=== PATIENT | female | born 1990 | race Caucasian/White ===

== ENCOUNTER → 2016-11-06 | Outpatient (CLI) | payer OTHER ==
[~2016-11-06] MED LIST: PSEU30TA20 PO
== END | disposition home or self-care (01) ==
LOC: C.PAPS 11:30
PROVIDERS: ATTEND Obstetrics & Gynecology
DX: Z34.90 Encounter for supervision of normal pregnancy, unspecified, unspecified trimester (principal); R87.610 Atypical squamous cells of undetermined significance on cytologic smear of cervix (ASC-US)

== ENCOUNTER → 2016-11-06 | Outpatient (CLI) | payer OTHER ==
[2016-11-06 11:09] LABS: BASO % 0.1 %; BASO ABS # 0.01 K/uL (0-0.2); COMPLETE YES; EOS % 0.6 %; HEMATOCRIT 40.8 % (37-47); IG% 0.3 %; LYMPH % 25.9 %; LYMPH ABS # 1.74 K/uL (1.2-3.4); MEAN CORPUSCULAR HEMOGLOBIN 29.8 pg (25-34); MEAN PLATELET VOLUME 10.5 fL (7.4-10.4); MONO % 7.2 %; NEUT % 65.9 %; PLATELET COUNT 198 K/uL (130-400); WHITE BLOOD COUNT 6.71 K/uL (4.8-10.8)
[2016-11-06 11:39] LABS: URINE APPEARANCE CLEAR (CLEAR); URINE BILIRUBIN NEG (NEG); URINE COLOR YELLOW; URINE EPITHELIAL CELL AUTO >30 /lpf (0-5); URINE NITRITE NEG (NEG); URINE SPECIFIC GRAVITY 1.027 (1.000-1.030); UROBILINOGEN NEG (NEG)
[2016-11-06 11:40] LABS: MANUAL MICROSCOPIC REQUIRED? NO; REVIEW REQ? NO
[2016-11-08 14:54] LABS: CHLAMYDIA TRACH RNA*** NOT DETECTED (NOT DETECTED); GC (NEIS GONORRHOEAE)RNA** NOT DETECTED (NOT DETECTED)
== END | disposition home or self-care (01) ==
LOC: C.LAB1850 09:59
PROVIDERS: ATTEND Obstetrics & Gynecology
DX: Z34.90 Encounter for supervision of normal pregnancy, unspecified, unspecified trimester (principal)

== ENCOUNTER → 2017-01-01 | Outpatient (CLI) | payer OTHER ==
[2017-01-01 17:56] LABS: GTGD 50 Grams
== END | disposition home or self-care (01) ==
LOC: C.LAB1850 16:53
PROVIDERS: ATTEND Obstetrics & Gynecology
DX: Z34.90 Encounter for supervision of normal pregnancy, unspecified, unspecified trimester (principal)

== ENCOUNTER → 2017-03-26 | Outpatient (CLI) | payer OTHER ==
[2017-03-26 11:57] LABS: URINE APPEARANCE CLEAR (CLEAR); URINE BILIRUBIN NEG (NEG); URINE COLOR YELLOW; URINE EPITHELIAL CELL AUTO >30 /lpf (0-5); URINE NITRITE NEG (NEG); URINE SPECIFIC GRAVITY 1.021 (1.000-1.030); UROBILINOGEN NEG (NEG)
[2017-03-26 12:09] LABS: MANUAL MICROSCOPIC REQUIRED? NO; REVIEW REQ? NO
[2017-03-26 12:28] LABS: HEMATOCRIT 36.1 % (37-47)
[2017-03-26 13:04] LABS: GTGD 50 Grams
== END | disposition home or self-care (01) ==
LOC: C.LAB1850 10:06
PROVIDERS: ATTEND Obstetrics & Gynecology
DX: Z34.82 Encounter for supervision of other normal pregnancy, second trimester (principal)

== ENCOUNTER → 2017-05-16 | Outpatient (CLI) | payer OTHER | END | disposition home or self-care (01) | LOC: C.LABSPEC 13:36 | PROVIDERS: ATTEND Obstetrics & Gynecology | DX: Z34.83 Encounter for supervision of other normal pregnancy, third trimester (principal) ==

== ENCOUNTER 2017-06-05 14:07 | Outpatient (CLI) | payer OTHER ==
[~2017-06-05] VITALS: Ht 160 cm; Wt 84.0 kg
[2017-06-05 16:25] VITALS: Ht 160 cm; Wt 84.0 kg
--- NOTE | 2017-06-05 16:36 | DIAGNOSTIC IMAGING REPORT ---
ULTRASOUND LIMITED CLINICAL HISTORY: Amniotic fluid assessment. COMPARISON STUDY: Pelvic CT dated 08/10/2016. FINDINGS: Real-time, grayscale, and color Doppler sonography of the fetus and gravid uterus is performed. There is a single live intrauterine gestation with estimated heart rate of 140 bpm. The femoral length measures 7.82 cm, corresponding to an estimated age of 40 weeks 0 days. The amniotic fluid index measures 14.38 cm. The placenta is posterior and fundal. Note that this does not constitute a dedicated anatomic scan. IMPRESSION: 1. There is a single live intrauterine gestation with estimated age of 40 weeks 0 days by femoral length measurement. 2. The amniotic fluid index measures 14.38 cm. Dictated: 06/05/2017 4:32 PM Transcribed: 06/05/2017 4:35 PM [email or web address] Electronically signed by: Nico Elena M.D. 06/05/2017 4:38 PM Dictated Date/Time: 06/05/2017 4:32 PM
== END 2017-06-05 20:05 | disposition home or self-care (01) ==
LOC: C.OPB 14:07 → C.LD 14:07 → UNDOADMIN 17:59 → C.LD 17:59 → C.OPB 17:59
PROVIDERS: ATTEND Obstetrics & Gynecology
DX: O36.8130 Decreased fetal movements, third trimester, not applicable or unspecified (principal); Z3A.39 39 weeks gestation of pregnancy

== ENCOUNTER 2017-06-06 08:10 | Inpatient (IN) | payer OTHER ==
[~2017-06-06] VITALS: Ht 157.5 cm; Wt 83.2 kg
[2017-06-06] MEDS ORDERED: LACTATED RINGER'S 1000ML 1,000 ML IV SCH ×2 (08:24→14:50)
[2017-06-06] MEDS ORDERED: LACTATED RINGER'S 1000ML 1,000 ML IV PRN (08:24)
[2017-06-06 08:52] LABS: HEMATOCRIT 38.5 % (37-47); MEAN CELL VOLUME 85.9 fL (80-100); MEAN CORPUSCULAR HEMOGLOBIN 30.1 pg (25-34); MEAN PLATELET VOLUME 9.9 fL (7.4-10.4); PLATELET COUNT 186 K/uL (130-400); RED BLOOD COUNT 4.48 M/uL (4.2-5.4); WHITE BLOOD COUNT 14.06 K/uL (4.8-10.8)
[2017-06-06] MEDS ORDERED: EpHEDrine SULFATE INJ 50 MG/ML AMP ONE (08:56)
[2017-06-06] MEDS ORDERED: FENTANYL CITRATE INJ 50 MCG/1 ML 2 ML VIAL ONE (08:56)
[2017-06-06] MEDS ORDERED: BUPIVACAINE 0.25% 30 ML VIAL ONE (08:56)
[2017-06-06] MEDS ORDERED: FENTANYL 2MCG/ML ROPIV 1.25MG/ML 100ML BAG EPI ONE (08:56)
[2017-06-06 09:12] LABS: MEAN CORPUSCULAR HGB CONC 35.1 g/dl (32-36)
[2017-06-06] MEDS ORDERED: NALOXONE HCL INJ 1 MG in SODIUM CHLORIDE 0.9% 1000ML 1,000 ML IV PRN (10:05)
[2017-06-06] MEDS ORDERED: LACTATED RINGER'S 1000ML 500 ML IV PRN ×2 (10:05→12:10)
[2017-06-06] MEDS ORDERED: FENTANYL 2MCG/ML ROPIV 1.25MG/ML 100ML BAG EPI PRN (10:15)
[2017-06-06] MEDS ORDERED: EpHEDrine SULFATE INJ 50 MG/ML AMP IV PRN (10:15)
[2017-06-06] MEDS ORDERED: NALBUPHINE HCL INJ 10 MG/ML AMP IV PRN (10:15)
[2017-06-06] MEDS ORDERED: DiphenhydrAMINE HCL 50 MG/ML VIAL IV PRN (10:15)
[2017-06-06] MEDS ORDERED: NALOXONE HCL INJ 0.4 MG/1 ML VIAL/CARP IV PRN (10:15)
[2017-06-06 10:39] VITALS: Ht 157.5 cm; Wt 83.2 kg
[2017-06-06] MEDS ORDERED: OXYTOCIN 30 UNITS/500ML NSS IV PRN ×2 (12:15→15:00)
--- NOTE | 2017-06-06 14:53 | Vaginal Delivery Summary ---
Vaginal Delivery Summary I was called to room for delivery and found the patient having done one test push and nearly . I quickly prepped for delivery. The patient's perineum was washed with soap and water. Through the next few pushes she delivered the head of her infant in the ROBERTO position, followed by the shoulders without difficulty. An extremely short cord was encountered and the was therefore held within about 10-12" of the perineum while it was doubly clamped and then cut by the FOB. The female infant was vigorous from the start and moved all extremities equally after delivery. The placenta delivered spontaneously, intact with a 3VC. There were no lacerations requiring repair.
[2017-06-06] MEDS ORDERED: LANOLIN OINT EXT PRN ×2 (15:00)
[2017-06-06] MEDS ORDERED: HYDROCORTISONE ACETATE 25 MG SUPP PR PRN (15:00)
[2017-06-06] MEDS ORDERED: OXYCODONE/ACETAMINOPHEN 5-325 TAB PO PRN (15:00)
[2017-06-06] MEDS ORDERED: DIPHTHERIA/TETANUS/PERTUSSIS 0.5 ML SYR/VIAL IM. ONE (15:00)
[2017-06-06] MEDS ORDERED: SUPERCREAM 0.870 % 15GM JAR EXT PRN (15:00)
[2017-06-06] MEDS ORDERED: BENZOCAINE 20% AER SPR 82.5 GM CAN EXT PRN (15:00)
[2017-06-06] MEDS ORDERED: ACETAMINOPHEN 325 MG TAB PO PRN (15:00)
--- NOTE | 2017-06-06 16:57 | Anesthesia Procedure Note ---
Anesthesia Epidural Removal Nt Date & Time Jun 06, 2017 at 16:57 Vital Signs Pain Intensity: 0.0 Notes Mental Status: alert / awake / arousable, participated in evaluation Nausea / Vomiting: adequately controlled Pain: adequately controlled Airway Patency, RR, SpO2: stable & adequate BP & HR: stable & adequate Hydration State: stable & adequate Neuraxial Anesthesia: was administered, sensory block is resolving Anesthetic Complications: no major complications apparent, pt satisfied with anesthetic care Epidural: removed without complications, with tip intact
[2017-06-06 18:10] VITALS: BP 125/76; PULSE 124; TEMP 36.7; O2SAT 96
[2017-06-06 19:35] VITALS: BP 100/69; PULSE 110; TEMP 36.7; O2SAT 97
[2017-06-06] MEDS: DOCUSATE SODIUM 100 MG CAP PO SCH (20:03)
[2017-06-06 23:30] VITALS: BP 97/61; PULSE 105; TEMP 36.8; O2SAT 96
[2017-06-06] MEDS: IBUPROFEN 600 MG TAB PO PRN (23:42)
[2017-06-07 03:40] VITALS: BP 107/70; PULSE 86; TEMP 36.6; O2SAT 95
--- NOTE | 2017-06-07 06:15 | OB/GYN Progress Note ---
MANAGER IN HOME Progress Note Date of Service Jun 07, 2017. Subjective conversation w/ patient, physical exam, chart review, lab review Ambulation: ambulating normally Voiding: no voiding problems Diet Tolerance: Regular Diet Lochia: Small Feeding Type: Bottle Feeding (and breast feeding) Pain: mild pain Review of Systems Constitutional: No fever Respiratory: No shortness of breath Cardiac: No chest pain Abdomen: No nausea, No vomiting Female : No dysuria Objective Vital Signs Date Time Temp Pulse Resp B/P (MAP) Pulse Ox O2 Delivery O2 Flow Rate FiO2 06/07/17 03:40 36.6 86 16 107/70 (82) 95 Room Air 06/06/17 23:30 36.8 105 18 97/61 (73) 96 Room Air 06/06/17 23:30 96 Room Air 06/06/17 19:35 36.7 110 20 100/69 (79) 97 Room Air 06/06/17 18:10 36.7 124 18 125/76 (92) 96 Room Air Physical Exam General Appearance: WELL-APPEARING Respiratory/Chest: lungs clear, normal breath sounds, no respiratory distress Cardiovascular: regular rate, rhythm Abdomen: normal bowel sounds, non tender, soft Fundus: Firm, Relation to Umbilicus (2 below U) Extremities: non-tender, no pedal edema Laboratory Results Last 24 Hours Test 06/06/17 08:41 06/07/17 04:44 White Blood Count 14.06 K/uL Red Blood Count 4.48 M/uL Hemoglobin 13.5 g/dL Hematocrit 38.5 % Mean Corpuscular Volume 85.9 fL Mean Corpuscular Hemoglobin 30.1 pg Mean Corpuscular Hemoglobin Concent 35.1 g/dl RDW Standard Deviation 44.6 fL RDW Coefficient of Variation 14.5 % Platelet Count 186 K/uL Mean Platelet Volume 9.9 fL Assessment and Plan Post- Day Number: 1 Continue Routine Care: A/P: This is a 26 y/o female, , PPD#1 s/p normal vaginal delivery. She is ambulating and clinically stable. Plan: - Vitals signs are reviewed and WNL (Tmax 36.7) - Last Hgb is 13.5 (06/06). This AM pending - Blood type O+, GBS neg, Rubella Immune - Routine care - Encourage ambulation, monitor and control pain with medication as needed, continue with regular diet as tolerated and monitor lochia - Stool softeners and sitz bath recommended - Encourage breast feeding and educate about breast feeding Resident Physician Supervision Note: I interviewed and examined the patient. Discussed with Dr. Nascimento and agree with findings and plan as documented in the note. Any exceptions or clarifications are listed here: [None] Documented By: Jazmyn Rizzo Resident Involvement: Resident Care Provided Care Provided: OB Delivery
[2017-06-07 06:39] LABS: HEMATOCRIT 34.8 % (37-47)
--- NOTE | 2017-06-07 06:39 | Discharge Instructions ---
Discharge Instructions Date of Service Jun 07, 2017. Admission Reason for Admission: R/O Labor Discharge Discharge Diagnosis / Problem: after delivery Discharge Goals Goal(s): Routine recovery after delivery Medications Continue Dispensed Medications: supercream, dermaplast, tucks, lansinoh Activity Recommendations Activity Limitations: per Instructions/Follow-up section . Instructions / Follow-Up Instructions / Follow-Up ACTIVITY RECOMMENDATIONS: * Gradual return to full activity over the next 2-3 weeks. * No lifting - nothing heavier than baby over the next 2-3 weeks. * Do not engage in vigorous exercise, sexual activity or sports until cleared by your physician. * Do not drive or operate any motorized equipment until cleared by your physician. * You may shower/bathe daily. MEDICATIONS: For discomfort or pain, you may use Acetaminophen (Tylenol), Ibuprofen (Advil), or Naproxen (Aleve) following the package directions. For constipation you may use Colace following the package directions. BREAST CARE: If you are not breast feeding: * Wear a supportive bra 24 hours a day for one to two weeks. * Avoid stimulating your breasts and nipples as much as possible during the first few weeks after delivery. * When taking a shower, have the warm water hit your back, not breasts. * When your breasts feel full, apply ice packs. Usually three to four times a day helps ease the discomfort. * Take a mild pain medication (Tylenol / Motrin) when you are uncomfortable. If breast feeding: * Use breast milk to lubricate nipples. Lansinoh cream may be used for sore nipples. You do not need to remove cream prior to breast feeding. If using a different brand of cream, check the label for directions regarding removal of cream prior to nursing. * Wear a supportive bra. * If having problems with breasts or breast feeding, call a web development consultant or your health care provider. EPISIOTOMY CARE: After delivery, if you have an episiotomy (stitches), the following steps will ease discomfort and aid healing. * For the first 24 hours after delivery, place ice packs next to your episiotomy to help reduce swelling. * After the first 24 hour-period, sitz baths, either portable or in the tub, are suggested. A shower with a shower arm sprayed over the episiotomy may be comforting. * Martha care should be done after each voiding and bowel movement. Squirt warm water from a plastic bottle over the perineum (region of the body between the anus and urinary opening) and pat dry. * Use Dermoplast to ease discomfort. Shake container. [place] directly over the episiotomy. Place a Tucks on a clean sanitary pad next to your episiotomy. SPECIAL CARE INSTRUCTIONS: When you are discharged from the hospital, it is important for you to follow the instructions listed below: * During the first week at home, you should be able to care for yourself and your baby. In addition, the usual light household activities are encouraged. * Limit your activities to the way you feel. Do not try to clean the house or move furniture. Be sensible. * If you actively engage in sports and have done so up until the time of your delivery, you may resume these activities as soon as you feel able. This may take up to one month or even longer. Use good judgment. * Continue to take your vitamins for at least six weeks after the of your baby. * Your diet need not be limited unless you were on a special diet before your delivery. Breast-feeding mothers need around 2500 calories per day and at least 64-80 ounces of fluid per day (8 to 10 glasses). * You should eat foods from the four major food groups. Crash diets or fad diets are to be avoided. Eating lean meats, fresh fruits and vegetables, low-fat dairy products, high fiber foods and a regular exercise program, will help you get back to your pre- weight without putting your health at risk. * Constipation is sometimes a problem after delivery. Take a mild laxative as needed. If breast feeding, Milk of Magnesia is acceptable to use. You may use a suppository or Fleets enema if no episiotomy. * A daily shower or tub bath is suggested. Be sure to thoroughly and gently dry the perineum. * A bloody vaginal discharge will usually continue until around four weeks post . A small amount of bleeding may continue for as long as six weeks. Vaginal discharge changes from the bright red bleeding after delivery to pink then brownish and finally yellowish-pink before becoming white and disappearing. * Bleeding may increase with activity. Your first period may come in 4-8 weeks. If you are breast feeding, your period may be delayed even longer. * [place] (sex) can begin whenever both you and your partner feel comfortable and do not have any form of genital infection. It is recommended that you wait at least six weeks for internal and external healing to occur. If you have questions, please talk to your health care practitioner. A condom should be used to prevent infection and . * Foreplay, gentle intercourse and lubrication is very important the first several times to prevent pain. A water-based lubricant such as K-Y jelly or Astroglide may be used. * If you have RH negative blood and your baby is RH positive, you will receive RHOGAM by injection prior to discharge. The nurse will give you a card to keep with you that has the date and place that you received RHOGAM after delivery. * During your care, you had a Rubella screen done to check for the presence of rubella antibodies in your blood. If your test was negative, you will receive a Rubella vaccine prior to discharge. This vaccine may cause a fever, soreness at the injection site and flu-like symptoms. If these symptoms persist, notify your health care practitioner. is not advised for one month after a Rubella vaccine. * Verbalizes understanding of car seat law as reviewed with patient nursing. * Car Seat hand-out given and reviewed with patient by nursing. * Shaken baby information reviewed with patient by nursing. Call you doctor if: * Heavy bleeding (saturating several pads an hour) or passing clots the size of your fist. * A fever >101 degrees F (38.3 degrees C) on two occasions four hours apart and /or chills. * Unusual pain in the pelvic or vaginal areas. * "Baby Blues" lasting longer than two weeks. If you have any questions or concerns, call your health care practitioner at . FOLLOW UP VISIT: * Please call the office at to schedule a 6 week examination. It is important you keep this appointment. It is important for you to make arrangements for either yearly or twice yearly check-ups thereafter. Current Hospital Diet Patient's current hospital diet: Regular OB Diet Discharge Diet Recommended Diet: Regular Diet Pending Studies Studies pending at discharge: no Medical Emergencies . Who to Call and When: Medical Emergencies: If at any time you feel your situation is an emergency, please call 911 immediately. . Non-Emergent Contact Non-Emergency issues call your: Formula Room Worker . . "Provider Documentation" section prepared by Tomasz Nascimento. . VTE Core Measure Inpt VTE Proph given/why not?: Treatment not indicated
[2017-06-07] MEDS: IBUPROFEN 600 MG TAB PO PRN ×2 (06:42→14:31)
[2017-06-07] MEDS ORDERED: PRENATAL VITAMIN TAB PO SCH (08:00)
[2017-06-07 08:15] VITALS: BP 102/71; PULSE 86; TEMP 36.5; O2SAT 97
[2017-06-07] MEDS: DOCUSATE SODIUM 100 MG CAP PO SCH (08:15)
[2017-06-07 12:00] VITALS: BP 107/72; PULSE 90; TEMP 37; O2SAT 96
[2017-06-07 15:45] VITALS: BP 117/77; PULSE 90; TEMP 36.6
[2017-06-07 17:05] VITALS: BP_DIAS 72; PULSE 90; TEMP 37
== END 2017-06-07 17:05 | disposition home or self-care (01) | DRG 775 ==
LOC: C.LD 08:10 → C.OPB 08:10 → C.LD 08:25 → C.OBG 18:25
PROVIDERS: ADMIT Obstetrics & Gynecology; ATTEND Obstetrics & Gynecology
PROC: 10E0XZZ Delivery of Products of Conception, External Approach (ICD-10-PCS; principal; 2017-06-06)
DX: O80 Encounter for full-term uncomplicated delivery (principal); Z3A.39 39 weeks gestation of pregnancy; Z37.0 Single live birth

== ENCOUNTER → 2017-08-30 | Outpatient (CLI) | payer OTHER ==
[2017-08-30 09:45] LABS: PREG INTERNAL NEGATIVE QC NEG CLEAR BACKGROUND; PREG INTERNAL POSITIVE QC POS CONTROL LINE
== END | disposition home or self-care (01) ==
LOC: C.LAB1850 09:02
PROVIDERS: ATTEND Physician Assistant
DX: Z30.430 Encounter for insertion of intrauterine contraceptive device (principal)

== ENCOUNTER → 2017-11-12 | Outpatient (CLI) | payer OTHER | END | disposition home or self-care (01) | LOC: C.PAPS 14:44 | PROVIDERS: ATTEND Physician Assistant | DX: Z12.4 Encounter for screening for malignant neoplasm of cervix (principal); Z11.51 Encounter for screening for human papillomavirus (HPV) ==